=== PATIENT | male | born 1970 | race Caucasian/White ===

== ENCOUNTER 2022-05-01 08:37 | Day surgery (SDC) | payer OTHER ==
[2022-04-19 13:21] LABS: BASOPHILS % (AUTO) 0.6 % (0.0-2.0); EOSINOPHILS # (AUTO) 0.2 K/uL (0.0-0.4); HEMATOCRIT 42.5 % (36-54); HEMOGLOBIN 14.8 g/dL (14.0-18.0); LYMPHOCYTES # (AUTO) 2.3 K/uL (1.0-5.5); LYMPHOCYTES % (AUTO) 28.8 % (20.5-51.5); MEAN CORPUSCULAR HEMOGLOBIN 33 pg (27-31); MEAN CORPUSCULAR HGB CONC 35 % (32-36); MEAN CORPUSCULAR VOLUME 95 fL (79.0-98.0); MONOCYTES # (AUTO) 0.4 K/uL (0.0-1.0); MONOCYTES % (AUTO) 5.2 % (1.7-9.3); NEUTROPHILS % (AUTO) 63.4 % (40.0-70.0); PLATELET COUNT (AUTO) 203 K/uL (130-430); RED BLOOD CELL COUNT(AUTO) 4.47 MIL/uL (4.2-6.2); RED CELL DISTRIBUTION WIDTH 13.4 % (9.0-15.0); WHITE BLOOD COUNT (AUTO) 7.9 K/uL (4.8-10.8)
[2022-04-19 13:31] LABS: CALCIUM 8.7 mg/dL (8.4-11.0); CREATININE 0.85 mg/dL (0.55-1.30); POTASSIUM 3.8 mmol/L (3.5-5.1)
[2022-04-19 13:36] LABS: INR 0.9 (0.80-1.20); PROTHROMBIN TIME 9.3 SECS (9.5-12.5)
[2022-04-19 14:38] LABS: BILIRUBIN,URINE NEGATIVE (NEGATIVE); CLARITY/URINE CLEAR (CLEAR); COLOR,URINE YELLOW (YELLOW); GLUCOSE,URINE NEGATIVE (NEGATIVE); KETONES,URINE NEGATIVE (NEGATIVE); LEUKOCYTE ESTERASE ,URINE NEGATIVE (NEGATIVE); NITRITE, URINE NEGATIVE (NEGATIVE); PROTEIN URINE NEGATIVE (NEGATIVE); UROBILINOGEN,URINE 0.2 (0.2-1.0)
[2022-04-19 14:47] LABS: BLOOD, URINE TRACE (NEGATIVE)
[2022-04-19 14:49] LABS: BACTERIA,URINE FEW /HPF (None Seen); MUCUS,URINE None Seen /LPF (None Seen); RBC,URINE NONE SEEN /HPF (0-3); WBC,URINE 0-3 /HPF (0-3)
[~2022-05-01] VITALS: Ht 157.5 cm; Wt 97.5 kg
[2022-05-01] MEDS ORDERED: NS 1000 ML IV.SOLN IV ONE (08:38)
[2022-05-01] MEDS ORDERED: ACETAMINOPHEN 500 MG TABLET ONE (11:14)
[2022-05-01] MEDS ORDERED: ACETAMINOPHEN 500 MG TABLET PO ONE (11:15)
[2022-05-01] MEDS ORDERED: DEXAMETHASONE SOD PHOSPHATE 4 MG/ML VIAL IVP ONE (12:45)
[2022-05-01] MEDS ORDERED: HYDROmorphone 2 MG/ML VIAL IVP ONE (12:45)
[2022-05-01] MEDS ORDERED: fentaNYL CITRATE/PF 100 MCG/2 ML AMP IVP ONE ×2 (12:45→13:45)
[2022-05-01] MEDS ORDERED: CEFAZOLIN 2 GM IVPB PREMIX 50 ML IV ONE (12:45)
[2022-05-01] MEDS ORDERED: MIDAZOLAM HCL 5 MG/5 ML VIAL IVP ONE (12:45)
[2022-05-01] MEDS ORDERED: PROPOFOL 200MG/ 20ML VIAL (DIPRIVAN) IV ONE (12:45)
[2022-05-01] MEDS ORDERED: LR 1,000 ML IV.SOLN IV ONE (12:45)
[2022-05-01] MEDS ORDERED: SEVOFLURANE 15 MIN GAS INH ONE (12:45)
[2022-05-01] MEDS ORDERED: NS IRRIG SOLN 1000 ML IR ONE (12:45)
[2022-05-01] MEDS ORDERED: ePHEDrine sulfate 50 MG/ML VIAL IVP ONE (12:45)
[2022-05-01] MEDS ORDERED: ONDANSETRON HCL 4 MG/2 ML VIAL IVP PRN (13:45)
[2022-05-01] MEDS ORDERED: HYDROmorphone 1 MG/ML INJ. CARTRIDGE IVP PRN ×2 (13:45)
[2022-05-01] MEDS ORDERED: HYDROmorphone 1 MG/ML INJ. CARTRIDGE ONE (14:18)
[2022-05-01 17:14] VITALS: BP_SYST 125
== END 2022-05-01 17:30 | disposition home or self-care (01) ==
LOC: SDS 08:37 → SMU 08:38 → SDS 17:30
PROVIDERS: ATTEND Orthopaedic Surgery Sports Medicine
DX: M23.203 Derangement of unspecified medial meniscus due to old tear or injury, right knee (principal); M94.261 Chondromalacia, right knee; M13.861 Other specified arthritis, right knee; F17.210 Nicotine dependence, cigarettes, uncomplicated; Z79.01 Long term (current) use of anticoagulants; Z79.899 Other long term (current) drug therapy; Z20.822 Contact with and (suspected) exposure to COVID-19
CPT/HCPCS: 71046; 80048; 81000; 85025; 85610; 85730; 36415 ×2; 93005; 29881; 87426; U0003; J0690; J1100; J2250; J2704; J3010; J1170 ×2; J7120; J7030